=== PATIENT | male | born 1995 | race Caucasian/White ===

== ENCOUNTER 2016-02-19 02:09 | Emergency (ER) | payer BC ==
[~2016-02-19] VITALS: Ht 172.7 cm; Wt 70.3 kg
[2016-02-19] MEDS ORDERED: MONT10TA21 PO (02:25)
[2016-02-19] MEDS ORDERED: NS IV 1000 ML 1,000 ML IV ONE (02:28)
[2016-02-19] MEDS ORDERED: KETOROLAC 30 MG/ML VIAL IVP ONE (02:30)
[2016-02-19] MEDS ORDERED: ONDANSETRON 4 MG/2 ML (SDV) Z0FRAN IVP ONE (02:30)
[2016-02-19 02:34] LABS: BASOPHILS % (AUTO) 0 % (0-10); EOSINOPHILS # (AUTO) 0.1 10^3/uL (0.0-0.3); EOSINOPHILS % (AUTO) 1 % (0-10); LYMPHOCYTES # (AUTO) 3.8 X 10^3 (1.0-4.0); LYMPHOCYTES % (AUTO) 44 % (12-44); MEAN CORPUSCULAR HEMOGLOBIN 31 PG (25-34); MEAN CORPUSCULAR HGB CONC 37 G/DL (32-36); MEAN CORPUSCULAR VOLUME 84 FL (80-99); MEAN PLATELET VOLUME 9.6 FL (7.4-10.4); MONOCYTES # (AUTO) 0.6 X 10^3 (0.0-1.0); MONOCYTES % (AUTO) 7 % (0-12); NEUTROPHILS % (AUTO) 47 % (42-75); PLATELET COUNT 308 10^3/uL (130-400); RED BLOOD COUNT 4.88 10^6/uL (4.35-5.85); RED CELL DISTRIBUTION WIDTH 11.5 % (10.0-14.5); WHITE BLOOD COUNT 8.6 10^3/uL (4.3-11.0)
[2016-02-19 02:46] LABS: BILIRUBIN,URINE NEGATIVE (NEGATIVE); KETONES,URINE NEGATIVE (NEGATIVE); LEUKOCYTE ESTERASE ,URINE NEGATIVE (NEGATIVE); NITRITE,URINE NEGATIVE (NEGATIVE); PH,URINE 5 (5-9); PROTEIN,URINE 1+ (NEGATIVE); UROBILINOGEN,URINE NORMAL (NORMAL)
[2016-02-19 02:53] LABS: ALANINE AMINOTRANSFERASE 23 U/L (0-55); ALBUMIN 4.7 G/DL (3.2-4.5); ANION GAP 14 MMOL/L (5-14); ASPARTATE AMINO TRANSFERASE 18 U/L (5-34); BILIRUBIN,TOTAL 0.5 MG/DL (0.1-1.0); BLOOD UREA NITROGEN 14 MG/DL (7-18); BUN/CREATININE RATIO 11; CALCIUM 9.8 MG/DL (8.5-10.1); CARBON DIOXIDE 19 MMOL/L (21-32); CHLORIDE 106 MMOL/L (98-107); CREATININE SERUM 1.26 MG/DL (0.60-1.30); GFR ESTIMATED > 60; GLUCOSE 109 MG/DL (70-105); POTASSIUM 3.7 MMOL/L (3.6-5.0); SODIUM 139 MMOL/L (135-145); TOTAL PROTEIN 7.3 G/DL (6.4-8.2)
--- NOTE | 2016-02-19 03:16 | ED Abdominal Pain ---
General Chief Complaint: Abdominal/GI Problems Stated Complaint: GROIN,LOWER ABD PAIN Nursing Triage Note: c/o sudden RLQ and R testicle pain x 1.5 hours Sepsis Screen: No Definite Risk Source of Information: Patient Exam Limitations: No Limitations History of Present Illness Time Seen By Provider: 02:15 Initial Comments This 20 year old gentleman presents to emergency room with complaints of right lower quadrant pain of sudden onset. Pain radiates into the right testicular region. He has associated nausea and vomiting. He denies any urinary changes or fever. He has no history of renal stones. Allergies and Home Medications Allergies Coded Allergies: No Known Drug Allergies (Unverified , 02/19/16) Home Medications Hydrocodone/Acetaminophen 1 Each Tablet #10 1-2 EACH PO Q6H PRN PRN PAIN Prescribed by: ANTELMO OMALLEY on 02/19/16 0409 Montelukast Sodium 10 Mg Tablet 10 MG PO DAILY (Reported) Review of Systems Constitutional: no symptoms reported EENTM: No Symptoms Reported Respiratory: No Symptoms Reported Cardiovascular: No Symptoms Reported Gastrointestinal: See HPI Genitourinary: See HPI Musculoskeletal: no symptoms reported Skin: no symptoms reported Psychiatric/Neurological: No Symptoms Reported Past Zbzshwi-Nglstf-Rywzdd Hx Patient Social History Alcohol Use: Denies Use Recreational Drug Use: No Smoking Status: Never a Smoker Recent Foreign Travel: No Contact w/Someone Who Travel: No Recent Infectious Disease Expo: No Recent Hopitalizations: No Physical Abuse Screen: No Sexual Abuse: No Surgeries HX Surgeries: No Respiratory Hx Respiratory Disorders: No Cardiovascular Hx Cardiac Disorders: No Neurological Hx Neurological Disorders: No Reproductive System Hx Reproductive Disorders: No Sexually Transmitted Disease: No Genitourinary Hx Genitourinary Disorders: No Gastrointestinal Hx Gastrointestinal Disorders: No Musculoskeletal Hx Musculoskeletal Disorders: No Endocrine Hx Endocrine Disorders: No HEENT HX ENT Disorders: No Cancer Hx Cancer: No Psychosocial Hx Psychiatric Problems: No Integumentary HX Skin/Integumentary Disorder: No Blood Transfusions Hx Blood Disorders: No Physical Exam Vital Signs VS - Last 72 Hours, by Label 02/19/16 02:22 Temp 95.8 Pulse 74 Resp 24 B/P 152/109 Pulse Ox 98 Capillary Refill : Less Than 3 Seconds General Appearance: WD/WN mild distress HEENT: PERRL/EOMI normal ENT inspection Respiratory: lungs clear normal breath sounds no respiratory distress no accessory muscle use Cardiovascular: regular rate, rhythm no edema no murmur Gastrointestinal: normal bowel sounds soft tenderness (mild in the right lower quadrant) Extremities: normal inspection no pedal edema Male: No testicular tenderness, other (patchy erythema of the glans penis and shaft reported as pruritic, not painful. 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 no motor/sensory deficits alert normal mood/affect oriented x 3 Skin: normal color warm/dry Progress/Results/Core Measures Results/Orders Lab Results Laboratory Tests Test 02/19/16 02:28 02/19/16 02:29 Range/Units Alanine Aminotransferase (ALT/SGPT) 23 0-55 U/L Albumin 4.7 H 3.2-4.5 G/DL Alkaline Phosphatase 53 40-136 U/L Anion Gap 14 5-14 MMOL/L Aspartate Amino Transf (AST/SGOT) 18 5-34 U/L BUN/Creatinine Ratio 11 Basophils # (Auto) 0.0 0.0-0.1 10^3/uL Basophils (%) (Auto) 0 0-10 % Blood Urea Nitrogen 14 7-18 MG/DL Calcium Level 9.8 8.5-10.1 MG/DL Carbon Dioxide Level 19 L 21-32 MMOL/L Chloride Level 106 98-107 MMOL/L Creatinine 1.26 0.60-1.30 MG/DL Eosinophils # (Auto) 0.1 0.0-0.3 10^3/uL Eosinophils (%) (Auto) 1 0-10 % Estimat Glomerular Filtration Rate > 60 Glucose Level 109 H 70-105 MG/DL Hematocrit 41 40-54 % Hemoglobin 15.2 13.3-17.7 G/DL Lymphocytes # (Auto) 3.8 1.0-4.0 X 10^3 Lymphocytes (%) (Auto) 44 12-44 % Mean Corpuscular Hemoglobin 31 25-34 PG Mean Corpuscular Hemoglobin Concent 37 H 32-36 G/DL Mean Corpuscular Volume 84 80-99 FL Mean Platelet Volume 9.6 7.4-10.4 FL Monocytes # (Auto) 0.6 0.0-1.0 X 10^3 Monocytes (%) (Auto) 7 0-12 % Neutrophils # (Auto) 4.0 1.8-7.8 X 10^3 Neutrophils (%) (Auto) 47 42-75 % Platelet Count 308 130-400 10^3/uL Potassium Level 3.7 3.6-5.0 MMOL/L Red Blood Count 4.88 4.35-5.85 10^6/uL Red Cell Distribution Width 11.5 10.0-14.5 % Sodium Level 139 135-145 MMOL/L Total Bilirubin 0.5 0.1-1.0 MG/DL Total Protein 7.3 6.4-8.2 G/DL White Blood Count 8.6 4.3-11.0 10^3/uL Urine Bacteria NEGATIVE /HPF Urine Bilirubin NEGATIVE NEGATIVE Urine Casts NONE /LPF Urine Clarity SLIGHTLY CLOUDY Urine Color YELLOW Urine Crystals NONE /LPF Urine Culture Indicated NO Urine Glucose (UA) NEGATIVE NEGATIVE Urine Ketones NEGATIVE NEGATIVE Urine Leukocyte Esterase NEGATIVE NEGATIVE Urine Mucus LARGE H /LPF Urine Nitrite NEGATIVE NEGATIVE Urine Protein 1+ H NEGATIVE Urine RBC 25-50 H /HPF Urine RBC (Auto) 5+ H NEGATIVE Urine Specific [place] 1.030 H 1.016-1.022 Urine Squamous Epithelial Cells 2-5 /HPF Urine Urobilinogen NORMAL NORMAL MG/DL Urine WBC NONE /HPF Urine pH 5 5-9 My Orders Orders-ANTELMO MITCHELL MD Ua Culture If Indicated (02/19/16 02:15) Cbc With Automated Diff (02/19/16 02:28) Comprehensive Metabolic Panel (02/19/16 02:28) Saline Lock/Iv-Start (02/19/16 02:28) Ns Iv 1000 Ml (Sodium Chloride 0.9%) (02/19/16 02:28) Ketorolac Injection (Toradol Injection) (02/19/16 02:30) Ondansetron Injection (Zofran Injectio (02/19/16 02:30) Ct Abd/Pelvis Wo(Kidney Stone) (02/19/16 03:31) Abdomen/Kub 1view (02/19/16 03:31) Rx-Ondansetron Po (Rx-Zofran Po) (02/19/16 04:05) Medications Given in ED Current Medications Medications Dose Ordered Sig/Walter Route Start Time Stop Time Status Last Admin Dose Admin Ketorolac Tromethamine 30 mg ONCE ONCE IVP 02/19/16 02:30 02/19/16 02:31 DC 02/19/16 02:35 30 MG Ondansetron HCl 4 mg ONCE ONCE IVP 02/19/16 02:30 02/19/16 02:31 DC 02/19/16 02:35 4 MG Sodium Chloride 1,000 ml @ 0 mls/hr Q0M ONCE IV 02/19/16 02:28 02/19/16 02:30 DC 02/19/16 02:35 0 MLS/HR Vital Signs/I&O Vital Sign - Last 12Hours 02/19/16 02:22 Temp 95.8 Pulse 74 Resp 24 B/P 152/109 Pulse Ox 98 Blood Pressure Mean: 123 Progress Note #1: Time: 03:00 Progress Note Patient received Toradol and Zofran and is now relatively symptom-free. Labs pending. IV fluids infusing. Progress Note #2: Progress Note bladder stone was seen on CT. Patient was symptom free at the time of dismissal. A take-home packet of Zofran was dispensed. Diagnostic Imaging Diagonstic Imaging: CT Plain Films/CT/US/NM/MRI: abdomen, pelvis Comments CT abdomen and pelvis viewed by me and [facility] report reviewed. There are multiple small bilateral renal calculi. There is a 2 mm calculus within the bladder. No ureteral stones or hydronephrosis. Appendix is normal. Departure Impression Impression: Primary Impression: Bladder stone Additional Impressions: Right lower quadrant pain Candidiasis of penis Nephrolithiasis Disposition: HOME, SELF-CARE Condition: Improved Departure-Patient Inst. Decision time for Depature: 04:00 Referrals: FREDY PEÑALOZA MD (PCP/Family) Primary Care Physician Patient Instructions: Kidney Stones in Adults Add. Discharge Instructions: Drink plenty of clear liquids. Use your pain medication as prescribed. Use Zofran as prescribed for nausea. Strain your urine to collect any stones that may pass. Present them to your doctor on follow-up. Follow-up with your doctor or a urologist of your choice early next week. Use a topical antifungal such as miconazole for your penile candidiasis. Seek further evaluation if this does not resolve the skin irritation. All discharge instructions reviewed with patient and/or family. Voiced understanding. Scripts Hydrocodone/Acetaminophen (Hydrocodon -Acetaminophen 5-325)1 Each Tablet1-2 Each PO Q6H PRN PAIN #10 TAB Prov:ANTELMO MITCHELL MD 02/19/16 ANTELMO MITCHELL MD Feb 19, 2016 03:16
[2016-02-19] MEDS ORDERED: RX-ONDANSETRON 4 MG ODT (ZOFRAN) PPK #4 SL STA (04:05)
[2016-02-19] MEDS ORDERED: HYDR-3812 PO (04:09)
[2016-02-19 04:14] VITALS: BP 139/78
--- NOTE | 2016-02-19 06:58 | Diagnostic Imaging Report ---
INDICATION: Abdominal pain. KUB 4:06 AM. Bowel gas pattern is normal. There are no pathologic masses or calcifications. IMPRESSION: Negative abdomen. Dictated by: Dictated on workstation # [id number]
--- NOTE | 2016-02-19 07:24 | Diagnostic Imaging Report ---
PROCEDURE: CT urinary tract, rule out kidney stone. TECHNIQUE: Multiple contiguous axial images were obtained through the abdomen and pelvis without the use of intravenous contrast. INDICATION: Groin pain. CT abdomen/ pelvis without contrast. Lung bases are clear. Liver appears normal. Gallbladder is present. Pancreas is unremarkable. Spleen is not enlarged. There is a 1-mm calculus in a lower pole calyx of the right kidney and a 1-mm calculus in an upper pole calyx of the right kidney. There is a 1-mm calculus in a lower pole calyx of the left kidney. There is no hydronephrosis. Ureters are clear. There is a 2-mm calculus in the urinary bladder. Large and small intestines appear normal. Appendix appears normal. IMPRESSION: Bilateral nephrolithiasis. There is one calculus in the gallbladder that may be a recently passed ureteral calculus. I agree with the preliminary interpretation. Dictated by: Dictated on workstation # [id number]
== END 2016-02-19 04:14 | disposition home or self-care (01) ==
LOC: EDUNIT# 02:09 → ER 02:12
DX: N21.0 Calculus in bladder (principal); B37.42 Candidal balanitis; N20.0 Calculus of kidney
CPT/HCPCS: 36415; 74000; 74176; 80053; 81000; 85025; 96361; 96374; 96375